=== PATIENT | female | born 1980 | race Caucasian/White ===

== ENCOUNTER 2018-09-05 13:14 | Emergency (ER) | payer MEDICAID, OTHER ==
[~2018-09-05] VITALS: Ht 165.1 cm; Wt 65.0 kg
[~2018-09-05 13:14] MED LIST: CHLO25CA10 PO; ONDA4TAB12 PO
[2018-09-05] MEDS ORDERED: ONDA8TAB9 PO (13:56)
== END 2018-09-05 14:16 | disposition home or self-care (01) ==
LOC: ER 13:14
DX: F10.20 Alcohol dependence, uncomplicated (principal); R63.0 Anorexia
CPT/HCPCS: 99283